=== PATIENT | female | born 1940 | race Caucasian/White ===

== ENCOUNTER 2022-04-21 14:19 | Inpatient (IN) | payer MEDICARE ==
[~2022-04-21] VITALS: Ht 162.6 cm; Wt 94.3 kg
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
[2022-04-21 15:46] LABS: BASOPHILS % (AUTO) 0.2 % (0.0-2.0); EOSINOPHILS % (AUTO) 6.3 % (0.0-6.0); HEMATOCRIT 31 % (33-45); HEMOGLOBIN 9.7 g/dL (11.5-14.8); LYMPHOCYTES # (AUTO) 1.2 K/uL (0.8-4.8); LYMPHOCYTES % (AUTO) 13.9 % (20.0-44.0); MEAN CORPUSCULAR HGB CONC 32 g/dl (31.0-36.0); MEAN CORPUSCULAR VOLUME 87 fL (82-100); MONOCYTES # (AUTO) 0.6 K/uL (0.1-1.30); MONOCYTES % (AUTO) 6.2 % (2.0-12.0); NEUTROPHILS # (AUTO) 6.6 K/uL (1.8-8.9); NEUTROPHILS % (AUTO) 73.4 % (43.0-81.0); PLATELET COUNT (AUTO) 207 K/uL (150-450); RED BLOOD CELL COUNT(AUTO) 3.52 MIL/uL (4.0-5.2); WHITE BLOOD COUNT (AUTO) 8.9 K/uL (4.3-11.0)
[2022-04-21 15:56] LABS: CALCIUM, SERUM 9.7 mg/dL (8.5-10.1); CARBON DIOXIDE 27 mmol/L (21-32); CHLORIDE 100 mmol/L (98-107); CREATININE 1.8 mg/dL (0.6-1.3); GLUCOSE 116 mg/dL (74-106); POTASSIUM 4.1 mmol/L (3.5-5.1); SODIUM SERUM 133 mmol/L (136-145); UREA NITROGEN, BLOOD 56 mg/dL (7-18)
[2022-04-21 16:02] LABS: ALANINE AMINOTRANSFERASE 15 U/L (12-78); ALBUMIN 3.4 g/dL (3.4-5.0); ALKALINE PHOSPHATASE 85 U/L (46-116); ASPARTATE AMINOTRANSFERASE 18 U/L (15-37); BILIRUBIN,DIRECT 0.1 mg/dL (0.0-0.2); BILIRUBIN,TOTAL 0.4 mg/dL (0.2-1.0); LIPASE 107 U/L (73-393); TOTAL PROTEIN, SERUM 7.4 g/dL (6.4-8.2)
[2022-04-21] MEDS ORDERED: HYDROCODONE/APAP 10/325MG TABLET ONE (16:40)
[2022-04-21] MEDS ORDERED: HYDROCODONE/APAP 10/325MG TABLET PO ONE (17:00)
[2022-04-21] MEDS ORDERED: IV NS 0.9% 1,000 ML BAG IV ONE (17:30)
[2022-04-21] MEDS ORDERED: IMIP25TA6 PO (19:13)
[2022-04-21] MEDS ORDERED: LEVO-104 PO (19:13)
[2022-04-21] MEDS ORDERED: VENL75TA4 PO (19:13)
[2022-04-21] MEDS ORDERED: PANT40TA49 PO (19:13)
[2022-04-21] MEDS ORDERED: CARV6.252 PO (19:13)
[2022-04-21] MEDS ORDERED: NITR50CA PO (19:13)
[2022-04-21] MEDS ORDERED: BUPR100T13 PO (19:13)
[2022-04-21] MEDS ORDERED: AMLO-212 PO (19:13)
[2022-04-21] MEDS ORDERED: IRBE300T19 PO (19:13)
[2022-04-21] MEDS ORDERED: CARVEDILOL 6.25 MG TABLET ONE (19:16)
[2022-04-21] MEDS ORDERED: CARVEDILOL 6.25 MG TABLET PO ONE (19:30)
[2022-04-21] MEDS ORDERED: MAGNESIUM HYDROXIDE 30 ML UDC PO PRN (20:00)
[2022-04-21] MEDS ORDERED: ACETAMINOPHEN 325 MG TABLET PO PRN (20:00)
[2022-04-21] MEDS ORDERED: ONDANSETRON HCL/PF 4 MG/2 ML VIAL IVP PRN (20:00)
[2022-04-21] MEDS ORDERED: hydrALAZINE HCL IV 20 MG VIAL IV PRN (20:00)
[2022-04-21] MEDS ORDERED: Z GUARD REMEDY 4 OZ OINT TP PRN (20:00)
[2022-04-21] MEDS ORDERED: MAG HYDROX/AL HYDROX/SIMETH 30 ML UDC PO PRN (20:00)
[2022-04-21] MEDS ORDERED: MORPHINE SULFATE INJ 2 MG/ML DISP.SYRIN IV PRN (20:00)
[2022-04-21] MEDS ORDERED: HYDROCODONE/APAP 5/325MG TABLET PO ONE (22:00)
--- NOTE | 2022-04-21 22:31 | NUR ---
MICHELINE OLVERA AD TRAFFICKER AT PT'S BEDSIDE
[2022-04-22] MEDS ORDERED: hydrALAZINE HCL IV 20 MG VIAL ONE (00:53)
--- NOTE | 2022-04-22 01:00 | NUR ---
PT TRANSFERRING TO [facility] VIA HOSPITAL PROTOCOL. VSS. ALL BELONGINGS WITH PT.
--- NOTE | 2022-04-22 01:02 | NUR ---
HAND CHAIN MAKER NOTES: RECEIVED REPORT FROM JULIAN. PT TRANSFERRED TO [facility] FROM ER, PLACED IN ROOM 118 BED 2. PT AWAKE, ALERT/ORIENTED X4 AND VERBALLY RESPONSVE. ON ROOM AIR AND PT TOLERATED WELL. O2 SAT 97%. BREATHING EVEN AND UNLABORED. IV ACCESS ON LAC#20G INTACT AND PATENT. NO S/S OF INFILTRATIONS. BODY ASSESSMENT DONE. NO OPEN SKIN NOTED. ONLY SKIN DISCOLORATIONS ON LT BREAST AREA. STILL C/O CHEST PAIN DUE TO STERNAL FX. NORCO GIVEN IN ER. ASSISTED HER TO THE BATHROOM. ALL SAFETY MEASURES IN PLACE. BED IN LOWEST POSITION AND LOCKED. SIDE RAILS UP X2, PLACE CALL LIGHT WITH IN REACH. WILL CONTINUE TO MONITOR.
--- NOTE | 2022-04-22 02:40 | NUR ---
RN NOTES: PT C/O CHEST PAIN, 8/10 PAIN SCALE. MORPHINE 0.5 ML GIVEN PER PRN ORDERED AND PT TOLERATED WELL. WILL CONTINUE TO MONITOR
[2022-04-22 04:00] VITALS: BP 145/69
--- NOTE | 2022-04-22 06:31 | NUR ---
RN CLOSING NOTES: PT IN BED AWAKE, ALERT/ORIENTED X4 AND VERBALLY RESPONSIVE. ON ROOM AIR AND PT TOLERATED WELL. O2 SAT 97%. BREATHING EVEN AND UNLABORED. IV ACCESS ON LAC#20G INTACT AND PATENT. NO S/S OF INFILTRATIONS. NO C/O PAIN OR DISCOMFORT. NO ACUTE DISTRESS. ASSISTED HER TO THE BATHROOM. ALL SAFETY MEASURES IN PLACE. BED IN LOWEST POSITION AND LOCKED. SIDE RAILS UP X2, PLACE CALL LIGHT WITH IN REACH. WILL ENDORSE TO MORNING SHIFT NURSE.
[2022-04-22 07:19] LABS: BASOPHILS % (AUTO) 0.8 % (0.0-2.0); EOSINOPHILS % (AUTO) 8.5 % (0.0-6.0); HEMATOCRIT 28 % (33-45); LYMPHOCYTES # (AUTO) 1.3 K/uL (0.8-4.8); LYMPHOCYTES % (AUTO) 23.6 % (20.0-44.0); MEAN CORPUSCULAR HGB CONC 32 g/dl (31.0-36.0); MEAN CORPUSCULAR VOLUME 86 fL (82-100); MONOCYTES # (AUTO) 0.5 K/uL (0.1-1.30); MONOCYTES % (AUTO) 9.5 % (2.0-12.0); NEUTROPHILS # (AUTO) 3.3 K/uL (1.8-8.9); NEUTROPHILS % (AUTO) 57.6 % (43.0-81.0); PLATELET COUNT (AUTO) 195 K/uL (150-450); RED BLOOD CELL COUNT(AUTO) 3.22 MIL/uL (4.0-5.2); WHITE BLOOD COUNT (AUTO) 5.7 K/uL (4.3-11.0)
[2022-04-22] MEDS ORDERED: PANTOPRAZOLE 40 MG TABLET.DR PO SCH ×2 (07:30)
[2022-04-22] MEDS ORDERED: LEVOTHYROXINE SODIUM 100 MCG TABLET PO SCH (07:30)
[2022-04-22 07:57] LABS: CALCIUM, SERUM 9.4 mg/dL (8.5-10.1); CARBON DIOXIDE 28 mmol/L (21-32); CHLORIDE 103 mmol/L (98-107); CREATININE 1.6 mg/dL (0.6-1.3); GLUCOSE 113 mg/dL (74-106); MAGNESIUM 2.6 mg/dL (1.8-2.4); PHOSPHORUS 2.9 mg/dL (2.5-4.9); POTASSIUM 3.6 mmol/L (3.5-5.1); SODIUM SERUM 138 mmol/L (136-145); UREA NITROGEN, BLOOD 46 mg/dL (7-18)
[2022-04-22 08:00] VITALS: BP 154/78
--- NOTE | 2022-04-22 08:00 | NUR ---
RN NOTE PATIENT REFUSED THE BLOOD DRAW FOR TROPONIN 0800.
[2022-04-22 08:10] LABS: THYROID STIMULATING HORMONE 5.933 uIU/mL (0.358-3.74)
[2022-04-22] MEDS ORDERED: AMLODIPINE BESYLATE 5 MG TABLET PO SCH (09:00)
[2022-04-22] MEDS ORDERED: CARVEDILOL 6.25 MG TABLET PO SCH (09:00)
[2022-04-22] MEDS ORDERED: NITROFURANTOIN MACROCRYSTAL 50 MG CAPSULE PO SCH (09:00)
[2022-04-22] MEDS ORDERED: NITROFURANTOIN/MONOHYDRATE MACROCRYSTALS 100 MG CAPSULE PO SCH ×2 (09:00→12:32)
[2022-04-22] MEDS: HYDROCODONE/APAP 5/325MG TABLET PO PRN ×2 (09:07→16:04)
[2022-04-22] MEDS: buPROPion 100 MG TABLET PO SCH ×2 (11:01→17:16)
[2022-04-22 12:00] VITALS: BP 134/63
[2022-04-22 16:00] VITALS: BP 161/68
--- NOTE | 2022-04-22 16:16 | NUR ---
patient anxious and would like to talk to client administrator,complaining that nobody discussed the ct scan result .Zhao Horowitz aware and talk to pt. and he is waiting for the surgeon to call him back.
--- NOTE | 2022-04-22 16:20 | NUR ---
nursing sup notified.
[2022-04-22] MEDS ORDERED: CYCL5TAB PO (16:50)
[2022-04-22] MEDS ORDERED: HYDR-4303 PO (16:50)
--- NOTE | 2022-04-22 17:02 | NUR ---
MEGA LEAVITT AT BEDSIDE TALKING TO FAMILY,PATIENT WILL BE DISCHARGE.
--- NOTE | 2022-04-22 17:30 | NUR ---
RN CLOSING NOTES PATIENT GOT DISCHARGED AND WAS TAKEN HOME BY WHEELCHAIR BY ER , DAUGHTER AND GRAND DAUGHTER. PATIENT WAS STABLE A/O X4. 2 NORCO PAIN MEDICATION WERE GIVEN THROUGHOUT THE SHIFT. ALSO ALL HER DUE MEDICATION WERE GIVEN ON A RIGHT TIME. PATIENT WAS SATISFIED AND GAVE US COOKIES AT THE DISCHARGE TIME.
[2022-04-22] MEDS ORDERED: IMIPRAMINE 25 MG TABLET PO SCH (22:00)
== END 2022-04-22 17:56 | disposition home or self-care (01) | DRG 564 ==
LOC: ER 14:20 → TELE1 23:26
PROVIDERS: ADMIT Registered Nurse; ATTEND Nurse Practitioner Family
DX: S22.20XA Unspecified fracture of sternum, initial encounter for closed fracture (principal); N17.0 Acute kidney failure with tubular necrosis; E87.1 Hypo-osmolality and hyponatremia; Y92.410 Unspecified street and highway as the place of occurrence of the external cause; I48.91 Unspecified atrial fibrillation; M41.9 Scoliosis, unspecified; Z20.822 Contact with and (suspected) exposure to COVID-19; I10 Essential (primary) hypertension; I27.21 Secondary pulmonary arterial hypertension; K21.9 Gastro-esophageal reflux disease without esophagitis; E03.9 Hypothyroidism, unspecified; F41.9 Anxiety disorder, unspecified; F32.A Depression, unspecified; E66.9 Obesity, unspecified; Z68.34 Body mass index [BMI] 34.0-34.9, adult; Z86.73 Personal history of transient ischemic attack (TIA), and cerebral infarction without residual deficits; Z79.899 Other long term (current) drug therapy; V43.62XA Car passenger injured in collision with other type car in traffic accident, initial encounter; G89.29 Other chronic pain; K76.89 Other specified diseases of liver; S20.219A Contusion of unspecified front wall of thorax, initial encounter
CPT/HCPCS: 36415; 71045-TC; 71250-TC; 72131-TC; 76770-TC; 80048-TC; 80076-TC; 83690-TC; 83735-TC; 84100-TC; 84443-TC; 84484-TC; 85025-TC; 87081-TC; 93307-TC; 97116-TC; 97530-TC; C9803; G0378; J0360; J2270